=== PATIENT | female | born 1970 | race Caucasian/White ===

== ENCOUNTER 2017-11-06 12:56 | Day surgery (SDC) | payer OTHER ==
[2017-11-06] MEDS ORDERED: FENTAnyl 50 MCG/ML VIAL (15:36)
[2017-11-06] MEDS ORDERED: MIDAZOLAM 1 MG/ML 2 ML INJ ×2 (15:36)
== END 2017-11-06 15:56 | disposition home or self-care (01) ==
LOC: GIL 12:56
DX: Z80.0 Family history of malignant neoplasm of digestive organs (principal); K64.9 Unspecified hemorrhoids
CPT/HCPCS: 45378; 84703